=== PATIENT | female | born 1945 ===

== ENCOUNTER 2023-07-19 08:16 | Day surgery (SDC) | payer MEDICARE, OTHER ==
[~2023-07-19 08:16] MED LIST: Sodium Chloride 0.9% 10 ML Syringe FLUSH PRN
[2023-07-19] MEDS ORDERED: Acetaminophen 325 MG Tab PO PRN (08:30)
[2023-07-19] MEDS ORDERED: Ondansetron 4 MG/2 ML SDV IVPUSH PRN (08:30)
[2023-07-19] MEDS ORDERED: Acetaminophen/Codeine 300-30 MG Tab PO PRN (08:30)
[2023-07-19] MEDS: Povidone-Iodine 5% Sterile Ophth Soln 30 ML Bottle EYERT ONE ×2 (09:57→11:51)
[2023-07-19] MEDS: Tropicamide 1% Ophth Soln 15 ML Bottle EYERT ONE (09:57)
[2023-07-19] MEDS: Moxifloxacin 0.5% Ophth Soln 3 ML Bottle EYERT ONE (09:57)
[2023-07-19] MEDS: Proparacaine 0.5% Ophth Soln 15 ML Bottle EYERT ONE ×2 (09:57→11:50)
[2023-07-19] MEDS: Cataract Ophth Solution EYERT ONE (09:58)
[2023-07-19] MEDS: Timolol Maleate 0.5% Ophth Soln 5 ML Bottle EYERT ONE (09:58)
[2023-07-19] MEDS: Phenylephrine 10% Ophth Soln 5 ML Bot EYERT PRN (09:58)
[2023-07-19] MEDS: Apraclonidine 0.5% Ophth Soln 5 ML Bot EYERT ONE (11:51)
[2023-07-19] MEDS: Lidocaine 1% 30 ML SDV ONE (11:52)
[2023-07-19] MEDS: Tobramycin 0.3% Ophth Oint 3.5 GM Tube EYERT ONE (11:52)
[2023-07-19] MEDS: Dexamethasone 4 MG/ML SDV IOCULAR ONE (11:54)
[2023-07-19] MEDS: Vancomycin 500 MG SDV EYERT ONE (11:55)
[2023-07-19] MEDS: Balanced Salt Solution Ophth Irrig 500 ML Bottle IOCULAR ONE (11:55)
[2023-07-19] MEDS: Chondroitin Sulfate/Hyaluronate Sodium Ophth Inj 0.75 ML Syringe EYERT ONE ×3 (11:56→12:18)
== END 2023-07-19 13:03 | disposition home or self-care (01) ==
LOC: DL.SDS 08:16
PROVIDERS: ATTEND Ophthalmology
DX: H26.9 Unspecified cataract (principal); I10 Essential (primary) hypertension; E11.9 Type 2 diabetes mellitus without complications; E07.9 Disorder of thyroid, unspecified; Z98.890 Other specified postprocedural states; Z79.84 Long term (current) use of oral hypoglycemic drugs; Z79.890 Hormone replacement therapy; Z79.899 Other long term (current) drug therapy; Z88.0 Allergy status to penicillin
CPT/HCPCS: A9270-GY; J1100; J3370; J3490; V2787-GY